=== PATIENT | male | born 1990 | race Caucasian/White ===

== ENCOUNTER 2017-02-16 | Observation (INO) | payer OTHER ==
[2017-02-16] VITALS: O2SAT 99
[2017-02-16] MEDS ORDERED: SODIUM CHLOR 0.9% 1000 ML INJ 1,000 ML IV SCH (00:03)
[2017-02-16] MEDS ORDERED: DIPHTH/TETANUS/ACEL PERTUSSIS (BOOSTER) 0.5 ML VIAL/PFS IM ONE ×2 (00:07→00:15)
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
[2017-02-16] MEDS ORDERED: SODIUM CHLORIDE 0.9% FLUSH 10 ML FLUSH IVF PRN ×2 (00:15→02:00)
[2017-02-16] MEDS ORDERED: ceFAZolin 2 GM PREMIX 50 ML IV ONE (00:15)
[2017-02-16 00:18] LABS: I-STAT POTASSIUM 3.8 MMOL/L (3.5-4.9); I-STAT SODIUM 139 MMOL/L (138-146)
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
[2017-02-16 00:25] LABS: AUTOMATED NEUTROPHIL # 8.9 TH/MM3 (1.8-7.7); BASOPHIL % 0.3 % (0.0-2.0); EOSINOPHIL % 0.3 % (0.0-4.0); HEMATOCRIT 44.4 % (39.0-51.0); HEMO FLAGS DIFF FINAL; LYMPH % 25.7 % (9.0-44.0); LYMPHOCYTE # 3.4 TH/MM3 (1.0-4.8); MEAN CELL VOLUME 85.5 FL (80.0-100.0); MEAN CORPUSCULAR HEMOGLOBIN 29.2 PG (27.0-34.0); MEAN CORPUSCULAR HGB CONC 34.2 % (32.0-36.0); MONO % 6.5 % (0.0-8.0); NEUT % 67.2 % (16.0-70.0); PLATELET COUNT 170 TH/MM3 (150-450); RED BLOOD COUNT 5.19 MIL/MM3 (4.50-5.90); RED CELL DISTRIBUTION WIDTH 12.7 % (11.6-17.2); WHITE BLOOD COUNT 13.3 TH/MM3 (4.0-11.0)
[2017-02-16 00:36] LABS: ALCOHOL LESS THAN 3 MG/DL (0-5)
[2017-02-16] MEDS ORDERED: IOHEXOL 350 MG/ML 10 ML VIAL (for RAD DIAG) IVCONTRAST ONE (00:36)
[2017-02-16 00:37] LABS: APTT (PATIENT) 21.4 SEC (24.3-30.1)
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
[2017-02-16 01:00] VITALS: BP 156/77; PULSE 98; RESP 17; O2SAT 98
[2017-02-16] MEDS ORDERED: LIDOCAINE 1%/EPINEPHrine 1:100,000 SOLN 20 ML VIAL INFIL ONE (01:30)
[2017-02-16] MEDS ORDERED: ONDANSETRON HCL 4 MG/2 ML VIAL IV PUSH PRN (02:00)
[2017-02-16] MEDS ORDERED: NS + KCL 20 MEQ INJ 1,000 ML IV SCH (02:00)
[2017-02-16] MEDS ORDERED: ACETAMINOPHEN 650 MG SUPP PR PRN (02:00)
[2017-02-16] MEDS ORDERED: MORPHINE SULFATE 4 MG/ML INJ IV PUSH PRN (02:00)
[2017-02-16] MEDS ORDERED: ACETAMINOPHEN 325 MG TAB PO PRN (02:00)
[2017-02-16 02:41] VITALS: BP 149/73; PULSE 97; RESP 15; O2SAT 100
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
[2017-02-16 04:29] VITALS: BP 133/67; PULSE 91; RESP 18; TEMP 99; O2SAT 98
[2017-02-16] MEDS ORDERED: PANTOPRAZOLE SODIUM 40 MG VIAL IV PUSH SCH (08:00)
[2017-02-16 08:40] VITALS: BP 116/56; PULSE 90; RESP 20; TEMP 98.2; O2SAT 98
[2017-02-16] MEDS ORDERED: SODIUM CHLORIDE 0.9% FLUSH 10 ML FLUSH IV FLUSH SCH (09:00)
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
[2017-02-16] MEDS ORDERED: NORC5TAB PO (10:50)
[2017-02-16 10:56] LABS: AUTOMATED NEUTROPHIL # 9.8 TH/MM3 (1.8-7.7); BASOPHIL % 0.3 % (0.0-2.0); EOSINOPHIL % 0.1 % (0.0-4.0); HEMATOCRIT 41.5 % (39.0-51.0); HEMO FLAGS DIFF FINAL; LYMPH % 21.5 % (9.0-44.0); MEAN CELL VOLUME 84.9 FL (80.0-100.0); MEAN CORPUSCULAR HEMOGLOBIN 28.8 PG (27.0-34.0); MONO % 8.8 % (0.0-8.0); NEUT % 69.3 % (16.0-70.0); PLATELET COUNT 187 TH/MM3 (150-450); RED BLOOD COUNT 4.89 MIL/MM3 (4.50-5.90); RED CELL DISTRIBUTION WIDTH 12.8 % (11.6-17.2); WHITE BLOOD COUNT 14.1 TH/MM3 (4.0-11.0)
[2017-02-16] MEDS ORDERED: ACETAMINOPHEN/HYDROcodone 325 MG/5 MG TAB PO PRN (11:00)
[2017-02-16 11:21] LABS: ALT (GPT) 81 U/L (12-78); ANION GAP 7 MEQ/L (5-15); AST (GOT) 26 U/L (15-37); BICARBONATE 27.5 MEQ/L (21.0-32.0); BLOOD UREA NITROGEN 11 MG/DL (7-18); CHLORIDE 104 MEQ/L (98-107); GLOMERULAR FILTRATION RATE 121 ML/MIN (>89); POTASSIUM 3.7 MEQ/L (3.5-5.1); SODIUM (NA) 138 MEQ/L (136-145)
[2017-02-16 11:23] LABS: ALKALINE PHOSPHATASE 76 U/L (45-117); TOTAL BILIRUBIN ADULT 0.7 MG/DL (0.2-1.0)
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
[2017-02-16] MEDS ORDERED: CEPH-460 PO (12:55)
[2017-02-16] MEDS ORDERED: SILVER SULFADIAZINE 1% CR 50 GM JAR TOP SCH (14:00)
[2017-02-17] MEDS ORDERED: SILVER SULFADIAZINE 1% CR 50 GM JAR TOP SCH (09:00)
[2017-02-17] MEDS ORDERED: INFLUENZA VIRUS VACCINE (QUADRIVALENT) 0.5 ML SYR IM ONE (10:00)
[2017-02-17] MEDS ORDERED: PNEUMOCOCCAL POLYVALENT INJ 25 MCG/0.5 ML SYR IM ONE (10:00)
== END 2017-02-16 14:42 | disposition home or self-care (01) ==
LOC: NEPE → NEDA 01:50 → NEPGCP 03:23
PROVIDERS: ADMIT Surgery Trauma Surgery; ATTEND Surgery Trauma Surgery
DX: S06.0X9A Concussion with loss of consciousness of unspecified duration, initial encounter (principal); S08.0XXA Avulsion of scalp, initial encounter; S01.111A Laceration without foreign body of right eyelid and periocular area, initial encounter; K76.0 Fatty (change of) liver, not elsewhere classified; V48.5XXA Car driver injured in noncollision transport accident in traffic accident, initial encounter; Y92.410 Unspecified street and highway as the place of occurrence of the external cause
CPT/HCPCS: 12011; 70450; 71010; 72125; 74177; 80053; 80307; 82435; 82565; 82947; 84132; 84295; 84520; 85025; 85610; 85730; 86850; 86900; 86901; 90471; 90715; 94150; 96361; 96365; 96375; 96376; 99285; 99291; C9113; G0378; J0690; J3480; J7030; Q9967; G0390

== ENCOUNTER 2017-02-21 14:40 | Emergency (ER) | payer OTHER ==
[~2017-02-21] VITALS: Ht 188 cm; Wt 114.0 kg
[~2017-02-21 14:40] MED LIST: CEPH-460 PO; NORC5TAB PO
--- NOTE | 2017-02-21 14:58 | PD ---
Physical Exam Time Seen by Provider: 14:57 Narrative 26-year-old male presents emergency department for suture removal from his right eyebrow. Patient seen in triage. Vital signs reviewed. Patient awaiting bed placement. MDM Supervised Visit with KAYCEE: No Scripts No Active Prescriptions or Reported Meds Ilana Garcia Feb 21, 2017 14:58
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
== END 2017-02-21 17:53 | disposition home or self-care (01) ==
LOC: NEPK 14:40
DX: S01.111D Laceration without foreign body of right eyelid and periocular area, subsequent encounter (principal); V89.2XXD Person injured in unspecified motor-vehicle accident, traffic, subsequent encounter; Z48.02 Encounter for removal of sutures
CPT/HCPCS: 99281